=== PATIENT | female | born 1930 | race Caucasian/White ===

== ENCOUNTER 2017-02-27 22:50 | Inpatient (IN) | payer MEDICARE ==
[~2017-02-27] VITALS: Ht 162.6 cm; Wt 71.1 kg
[~2017-02-27 22:50] MED LIST: ACET325T14 PO; ALBU2.5V11 NEB; ALBU8.5H5 INH; AZIT500T77 PO; CEFD300C37 PO; CEFU500T50 PO; CLON2TAB2 PO; DIPH25CA61 PO; DOXY100T PO; ENAL5TAB PO; FURO-93 PO; GABA600T2 PO; HEPA500024 SQ; HYDR-3138 PO; HYDR-3307 PO; HYDR50TA3 PO; IPRA3AMP18 NEB; LEVO100T41 PO; LISI5TAB7 PO; LOVA20TA2 PO; METH40TA2 PO; METH5TAB2 PO; NAPR250T PO; NICO1PAT5 TD; OMEP-110 PO; POLY1GRA PO; POTA25TA4 PO; PRED10TA PO; PREG25CA PO; SENN1TAB7 PO; SPIR100T2 PO; SUCR1TAB26 PO; TIOT18CA INH; oxygen NAS
[2017-02-28] VITALS (7 sets, daily range): BP systolic 72–122; BP diastolic 40–76
[2017-02-28] MEDS ORDERED: GUAIFENESIN/DM 200-20MG, 10ML UDC PO PRN (02:00)
[2017-02-28] MEDS ORDERED: ONDANSETRON 2MG/ML, 2ML IVPush PRN (02:00)
[2017-02-28] MEDS ORDERED: DOCUSATE 100 MG CAPSULE PO PRN (02:00)
[2017-02-28] MEDS ORDERED: POLYETHYLENE GLYCOL 17 GM PACKET PO PRN (02:00)
[2017-02-28] MEDS ORDERED: ACETAMINOPHEN 325 MG TABLET PO PRN (02:00)
[2017-02-28] MEDS ORDERED: SODIUM POLYSTYRENE SULFONATE ORAL SUSP PO ONE (02:00)
[2017-02-28] MEDS ORDERED: BISACODYL 10 MG SUPP PR PRN (02:00)
[2017-02-28 02:15] LABS: ASPARTATE AMINO TRANSFERASE 31 U/L (15-37); BLOOD UREA NITROGEN 68 mg/dL (7-18)
[2017-02-28 02:18] LABS: TOTAL IRON BINDING CAPACITY 308 mcg/dL (250-450)
[2017-02-28] MEDS: HEPARIN 5,000 UNITS/ML, 1ML SQ SCH ×3 (02:44→18:34)
[2017-02-28] MEDS ORDERED: SODIUM BICARBONATE 1 MEQ/ML, 50ML VIAL IVPush ONE (03:00)
[2017-02-28] MEDS ORDERED: ALBUTEROL/IPRATROPIUM 2.5MG/0.5MG, 3 ML ONE (03:54)
[2017-02-28] MEDS: LEVOTHYROXINE 112 MCG TABLET PO SCH (05:24)
[2017-02-28] MEDS ORDERED: SODIUM CHLORIDE 0.9%, 500ML IVBOLUS ONE (05:30)
[2017-02-28 05:49] LABS: OCCBLD LOT 2-15-23038031; OCCBLD OBC PASS
[2017-02-28] MEDS: ALBUTEROL/IPRATROPIUM 2.5MG/0.5MG, 3 ML NPPB SCH ×5 (07:45→23:14)
[2017-02-28 11:53] LABS: BLOOD UREA NITROGEN 64 mg/dL (7-18)
[2017-02-28 19:00] LABS: IS PT STATUS REG ER OR PRE ER? NO
[2017-02-28] MEDS: NICOTINE 14MG/24 HR PATCH.TD24 TD SCH (20:45)
[2017-02-28 21:20] LABS: PATH.CAST-FLAG NOT PRESENT; SPERM-FLAG NOT PRESENT; SRC-FLAG NOT PRESENT; XTAL-FLAG NOT PRESENT; YLC-FLAG NOT PRESENT
[2017-03-01] VITALS (15 sets, daily range): BP systolic 83–124; BP diastolic 40–69
[2017-03-01] MEDS: HEPARIN 5,000 UNITS/ML, 1ML SQ SCH ×3 (03:52→17:52)
[2017-03-01] MEDS: LEVOTHYROXINE 112 MCG TABLET PO SCH (06:25)
[2017-03-01] MEDS: ALBUTEROL/IPRATROPIUM 2.5MG/0.5MG, 3 ML NPPB SCH ×4 (07:05→22:39)
[2017-03-01 08:11] LABS: BLOOD UREA NITROGEN 56 mg/dL (7-18)
[2017-03-01] MEDS ORDERED: ACETAMINOPHEN 325 MG TABLET PO ONE (10:00)
[2017-03-01] MEDS ORDERED: ERGOCALCIFEROL 50,000 UNIT CAPSULE PO SCH (17:00)
[2017-03-01] MEDS: NICOTINE 14MG/24 HR PATCH.TD24 TD SCH (22:26)
[2017-03-02 00:57] VITALS: BP 131/57
[2017-03-02] MEDS: HEPARIN 5,000 UNITS/ML, 1ML SQ SCH (02:00)
[2017-03-02 06:26] LABS: BLOOD UREA NITROGEN 37 mg/dL (7-18)
[2017-03-02] MEDS: LEVOTHYROXINE 112 MCG TABLET PO SCH (06:41)
[2017-03-02] MEDS: ALBUTEROL/IPRATROPIUM 2.5MG/0.5MG, 3 ML NPPB SCH ×4 (07:00→21:00)
[2017-03-02 07:10] VITALS: BP 124/58
[2017-03-02] MEDS ORDERED: FUROSEMIDE 20 MG/2 ML IV ONE (08:30)
[2017-03-02 13:52] VITALS: BP 102/56
[2017-03-02 19:52] VITALS: BP 133/64
[2017-03-02] MEDS: NICOTINE 14MG/24 HR PATCH.TD24 TD SCH (19:57)
[2017-03-03 01:14] VITALS: BP 119/63
[2017-03-03 06:26] LABS: BLOOD UREA NITROGEN 25 mg/dL (7-18)
[2017-03-03 08:12] VITALS: BP 154/81
[2017-03-03] MEDS: LEVOTHYROXINE 112 MCG TABLET PO SCH (08:14)
[2017-03-03] MEDS: ALBUTEROL/IPRATROPIUM 2.5MG/0.5MG, 3 ML NPPB SCH (08:59)
[2017-03-03] MEDS ORDERED: ERGO500017 PO (09:38)
[2017-03-03] MEDS ORDERED: TRAM50TA2 PO (09:38)
[2017-03-03] MEDS ORDERED: ENALAPRIL 5MG TABLET PO SCH (10:00)
[2017-03-03 14:25] VITALS: BP 143/65
[2017-03-03 14:28] VITALS: BP 115/62
[2017-03-03] MEDS ORDERED: LEVO112T2 PO (16:19)
== END 2017-03-03 19:40 | DRG 682 ==
LOC: 5SO 02-28 01:15
PROC: 30233N1 Transfusion of Nonautologous Red Blood Cells into Peripheral Vein, Percutaneous Approach (ICD-10-PCS; principal; 2017-03-01)
DX: N17.0 Acute kidney failure with tubular necrosis (principal); J18.9 Pneumonia, unspecified organism; J96.21 Acute and chronic respiratory failure with hypoxia; L03.116 Cellulitis of left lower limb; J44.1 Chronic obstructive pulmonary disease with (acute) exacerbation; I50.32 Chronic diastolic (congestive) heart failure; J44.0 Chronic obstructive pulmonary disease with (acute) lower respiratory infection; E87.1 Hypo-osmolality and hyponatremia; I45.10 Unspecified right bundle-branch block; E03.9 Hypothyroidism, unspecified; E87.5 Hyperkalemia; I35.0 Nonrheumatic aortic (valve) stenosis; M19.90 Unspecified osteoarthritis, unspecified site; G89.29 Other chronic pain; F17.210 Nicotine dependence, cigarettes, uncomplicated; Z66 Do not resuscitate; D64.9 Anemia, unspecified; I11.0 Hypertensive heart disease with heart failure; E55.9 Vitamin D deficiency, unspecified; Z90.710 Acquired absence of both cervix and uterus; Z90.49 Acquired absence of other specified parts of digestive tract; Z86.73 Personal history of transient ischemic attack (TIA), and cerebral infarction without residual deficits; Z99.81 Dependence on supplemental oxygen; D69.6 Thrombocytopenia, unspecified; T37.0X5A Adverse effect of sulfonamides, initial encounter
CPT/HCPCS: 36415; 71010; 74176; 76770; 80048; 80053; 81001; 82272; 82306; 82436; 82570; 82607; 82728; 83540; 83550; 83735; 83880; 84100; 84133; 84300; 84439; 84443; 84484; 85025; 85610; 86677; 86850; 86900; 86923; 87086; 93005; 94640; J1644; J7620; J1940; J7040; P9016